=== PATIENT | female | born 1990 | race Caucasian/White ===

== ENCOUNTER 2017-02-14 10:15 | Outpatient (CLI) | payer OTHER ==
[~2017-02-14] VITALS: Ht 165.1 cm; Wt 74.1 kg
[2017-02-14 11:13] VITALS: BP 102/63
== END 2017-02-14 12:27 | disposition home or self-care (01) ==
LOC: LDOP 10:15
PROVIDERS: ATTEND Obstetrics & Gynecology Maternal & Fetal Medicine
DX: O26.893 Other specified pregnancy related conditions, third trimester (principal); O46.93 Antepartum hemorrhage, unspecified, third trimester; O60.03 Preterm labor without delivery, third trimester; R10.9 Unspecified abdominal pain; Z3A.39 39 weeks gestation of pregnancy
CPT/HCPCS: 59025; 81001; 87086; 99211; G0463

== ENCOUNTER 2017-02-15 17:55 | Outpatient (CLI) | payer OTHER ==
[~2017-02-15] VITALS: Ht 165.1 cm; Wt 72.0 kg
[2017-02-15 18:37] VITALS: BP 130/67
== END 2017-02-15 19:23 | disposition home or self-care (01) ==
LOC: LDOP 17:55
PROVIDERS: ATTEND Obstetrics & Gynecology Maternal & Fetal Medicine
DX: O26.893 Other specified pregnancy related conditions, third trimester (principal); R10.9 Unspecified abdominal pain; Z3A.39 39 weeks gestation of pregnancy
CPT/HCPCS: 59025; 99211; G0463

== ENCOUNTER 2017-02-15 22:15 | Inpatient (IN) | payer OTHER ==
[~2017-02-15] VITALS: Ht 165.1 cm; Wt 75.0 kg
[2017-02-15] MEDS ORDERED: ONDANSETRON 2MG/ML, 2ML ONE (22:53)
[2017-02-15 22:55] LABS: DAU SCREEN DISCLAIMER
[2017-02-15] MEDS ORDERED: LACTATED RINGERS 1,000 ML IVBOLUS ONE (23:00)
[2017-02-15] MEDS ORDERED: ONDANSETRON 2MG/ML, 2ML IVPush ONE (23:00)
[2017-02-15] MEDS ORDERED: LACTATED RINGERS 1,000 ML IV SCH (23:08)
[2017-02-15] MEDS ORDERED: D5%-LACTATED RINGERS 1,000 ML IV SCH (23:08)
[2017-02-15] MEDS ORDERED: OXYTOCIN 30U/ 0.9% NaCL 500ML 500 ML IV ONE (23:08)
[2017-02-15] MEDS ORDERED: FENTANYL PF 100 MCG/2ML ONE ×2 (23:21→23:41)
[2017-02-15] MEDS ORDERED: FENTANYL PF 100 MCG/2ML IVPush PRN (23:30)
[2017-02-15] MEDS ORDERED: TERBUTALINE 1 MG/ML, 1ML IVPush PRN (23:30)
[2017-02-15] MEDS ORDERED: ONDANSETRON 2MG/ML, 2ML IVPush PRN (23:30)
[2017-02-15] MEDS ORDERED: CALCIUM CARBONATE 500 MG TAB.CHEW PO PRN (23:30)
[2017-02-15] MEDS ORDERED: FENTANYL PF 100 MCG/2ML IV PRN (23:30)
[2017-02-15] MEDS ORDERED: FENTANYL/BUPIV./NS/PF 250 ML EPIDCONT ONE (23:41)
[2017-02-15] MEDS ORDERED: BUPIVACAINE 0.25% ONE (23:41)
[2017-02-16] MEDS ORDERED: LACTATED RINGERS 1,000 ML IV SCH (00:15)
[2017-02-16] MEDS ORDERED: FENTANYL/BUPIV./NS/PF 250 ML EPIDCONT SCH (00:15)
[2017-02-16] MEDS ORDERED: LACTATED RINGERS 1,000 ML IVBOLUS PRN (00:30)
[2017-02-16] MEDS ORDERED: EPHEDRINE 50 MG/ML, 1ML IVPush PRN (00:30)
[2017-02-16] MEDS ORDERED: ONDANSETRON 2MG/ML, 2ML IVPush PRN (00:30)
[2017-02-16] MEDS ORDERED: NEWBORN KIT ONE (00:39)
[2017-02-16] MEDS ORDERED: OXYTOCIN 30U/ 0.9% NaCL 500ML 500 ML ONE (00:39)
[2017-02-16] MEDS: OXYTOCIN 30U/ 0.9% NaCL 500ML 500 ML IV SCH ×6 (01:30→22:03)
[2017-02-16] MEDS ORDERED: CALCIUM CARBONATE 500 MG TAB.CHEW PO PRN (02:30)
[2017-02-16] MEDS ORDERED: ONDANSETRON 2MG/ML, 2ML IV PRN (02:30)
[2017-02-16] MEDS ORDERED: MISOPROSTOL 200 MCG TABLET PR PRN (02:30)
[2017-02-16] MEDS ORDERED: ACETAMINOPHEN 325 MG TABLET PO PRN ×2 (02:30)
[2017-02-16] MEDS ORDERED: BISACODYL 10 MG SUPP PR PRN (02:30)
[2017-02-16 04:15] VITALS: BP 97/54
[2017-02-16] MEDS: IBUPROFEN 600 MG TABLET PO PRN ×3 (07:23→22:40)
[2017-02-16] MEDS: HYDROcodone/APAP 5/325 TABLET PO PRN ×3 (07:24→22:40)
[2017-02-16 07:50] VITALS: BP 98/58
[2017-02-16] MEDS: DOCUSATE 100 MG CAPSULE PO PRN (08:27)
[2017-02-16] MEDS: PRENATAL VIT/IRON/FA 1 EACH TABLET PO SCH (08:27)
[2017-02-16] MEDS ORDERED: DIPH,PERTUSS(ACELL),TET VAC/PF NC IM-VACC ONE (09:00)
[2017-02-16 13:00] VITALS: BP 103/67
[2017-02-16 20:00] VITALS: BP 109/65
[2017-02-17] MEDS: HYDROcodone/APAP 5/325 TABLET PO PRN ×3 (06:00→15:44)
[2017-02-17] MEDS: IBUPROFEN 600 MG TABLET PO PRN ×2 (06:00→15:44)
[2017-02-17] MEDS: OXYTOCIN 30U/ 0.9% NaCL 500ML 500 ML IV SCH ×2 (08:03→18:03)
[2017-02-17 08:10] VITALS: BP 104/65
[2017-02-17] MEDS: DOCUSATE 100 MG CAPSULE PO PRN ×2 (09:08→19:23)
[2017-02-17] MEDS: PRENATAL VIT/IRON/FA 1 EACH TABLET PO SCH (09:08)
[2017-02-17] MEDS: FERROUS GLUCONATE 324 MG TABLET PO SCH (19:23)
[2017-02-17 19:30] VITALS: BP 103/63
[2017-02-18] MEDS: IBUPROFEN 600 MG TABLET PO PRN ×3 (00:13→11:29)
[2017-02-18] MEDS: HYDROcodone/APAP 5/325 TABLET PO PRN ×2 (00:13→05:01)
[2017-02-18] MEDS: OXYTOCIN 30U/ 0.9% NaCL 500ML 500 ML IV SCH (04:03)
[2017-02-18 08:00] VITALS: BP 96/61
[2017-02-18] MEDS: PRENATAL VIT/IRON/FA 1 EACH TABLET PO SCH (08:45)
[2017-02-18] MEDS: FERROUS GLUCONATE 324 MG TABLET PO SCH (08:45)
[2017-02-18] MEDS: DOCUSATE 100 MG CAPSULE PO PRN (08:45)
[2017-02-18] MEDS ORDERED: HYDR-3240 PO (08:50)
[2017-02-18] MEDS ORDERED: IBUP-1222 PO (08:50)
== END 2017-02-18 12:52 | disposition home or self-care (01) | DRG 775 ==
LOC: LDOP 22:15 → LDIP 23:09 → 2NW 02-16 04:01
PROVIDERS: ADMIT Obstetrics & Gynecology Maternal & Fetal Medicine; ATTEND Obstetrics & Gynecology Maternal & Fetal Medicine
PROC: 10E0XZZ Delivery of Products of Conception, External Approach (ICD-10-PCS; principal; 2017-02-16)
PROC: 0W8NXZZ Division of Female Perineum, External Approach (ICD-10-PCS; 2017-02-16)
PROC: 3E0R3CZ (ICD-10-PCS; 2017-02-16)
PROC: 00HU33Z Insertion of Infusion Device into Spinal Canal, Percutaneous Approach (ICD-10-PCS; 2017-02-16)
DX: O76 Abnormality in fetal heart rate and rhythm complicating labor and delivery (principal); O69.81X0 Labor and delivery complicated by cord around neck, without compression, not applicable or unspecified; O99.03 Anemia complicating the puerperium; D64.9 Anemia, unspecified; Z37.0 Single live birth; Z3A.39 39 weeks gestation of pregnancy; Z23 Encounter for immunization
CPT/HCPCS: 36415; 80307; 81001; 82803; 85025; 86850; 86900; 87086; 90715; J2405; J3010; J3490; J2590; J7120